=== PATIENT | female | born 2000 | race Caucasian/White ===

== ENCOUNTER 2022-05-14 21:42 | Observation (INO) ==
[2022-05-14] MEDS ORDERED: KETOROLAC TROMETHAMINE 15 MG/ML VIAL IV STA (22:00)
[2022-05-14 22:38] LABS: Basophils # (auto) 0.02 K/uL (0-0.2); Basophils % (auto) 0.2 %; Hematocrit (blood only) 41.8 % (34.1-44.9); Hemoglobin 14.5 g/dl (12.0-16.0); Immature Granulocytes # (auto) 0.03 K/uL (0.00-0.02); Immature Granulocytes % (auto) 0.2 %; Lymphocytes # (auto) 1.48 K/uL (1.2-3.4); Lymphocytes % (auto) 11.8 %; Mean Corpuscular Hemoglobin 31.9 pg (25.0-34.0); Mean Corpuscular Hgb Conc 34.7 g/dL (32.0-36.0); Mean Corpuscular Volume 91.9 fL (80.0-100.0); Mean Platelet Volume 9.2 fL (9.4-12.3); Monocytes # (auto) 1.53 K/uL (0.24-0.82); Monocytes % (auto) 12.2 %; Neutrophils # (auto) 9.49 K/uL (1.4-6.5); Neutrophils % (auto) 75.6 %; Platelet Count 411 K/uL (130-400); RDW Coefficient of Variation 12.3 % (11.5-14.5); RDW Standard Deviation 41.4 fL (36.4-46.3); Red Blood Count 4.55 M/uL (3.93-5.22); White Blood Count 12.55 K/ul (4.8-10.8)
[2022-05-14 22:57] LABS: Monotest Negative (Negative); Pregnancy Test, Serum Negative (Negative)
--- NOTE | 2022-05-14 23:03 | Emergency Department Note ---
History of Present Illness General Chief complaint: Throat Pain Stated complaint: SWOLLEN LYMPH NODE RIGHT SIDE, TROUBLE BREATH Time Seen by Provider: 05/14/22 21:55 History of Present Illness Maximum Pain Intensity: 5 This 21-year-old presents to the ER complaining of throat discomfort and enlarged lymph node for the past few days steadily getting worse who saw urgent care was placed on prednisone and had a negative strep mono COVID and flu test Location: Throat and neck Quality: Discomfort Severity: Moderate Duration: Past few days Timing: Started few days ago Context: Lymph node got larger and patient came in Modifying factors: better with prednisone; worse with swallowing Patient denies chest pain, dyspnea, headache, neck stiffness, high fevers, lethargy. She states she felt like the prednisone was helping but not anymore. No dental pain. Home Medications Medication Instructions Recorded Confirmed Type No Known Home Medications 05/14/22 05/14/22 History Allergies Allergy/AdvReac Type Severity Reaction Status Date / Time CEFZIL AdvReac Unknown Uncoded 10/28/03 01:58 Past Med/Surg History Medical History No acute medical problems Surgical History (Updated 05/14/22 @ 22:59 by Nabila Ling PA-C) No pertinent past surgical history Social History Smoking Status: Never smoker Preferred Language: S[place] Feels Safe at Home: Yes Review of Systems A total of 10 systems reviewed and were otherwise negative Physical Exam Vital Signs Vital Signs - 24 hr 05/14/22 21:48 05/14/22 21:43 05/14/22 22:00 Temperature 36.1 C L 36.8 C Temperature Source Temporal Artery Scan Oral Pulse Rate 78 64 Pulse Rate [Apical] 66 Pulse Rhythm Regular Respiratory Rate 20 19 16 Respiratory Effort / Characteristics Non-Labored Spontaneous Non-Labored Spontaneous Respiratory Depth Normal Normal Blood Pressure 134/84 Blood Pressure [Right Arm] 131/81 Blood Pressure Mean 100 Blood Pressure Mean [Right Arm] 97 Pulse Oximetry 100 99 98 Oxygen Delivery Method Room Air Room Air Room Air Sepsis New/Unexplained Change in Mental Status N/A Sepsis Action Taken by Nursing No Action Required 05/14/22 23:43 05/15/22 01:00 Temperature 36.6 C Temperature Source Oral Pulse Rate Pulse Rate [Apical] 61 66 Pulse Rhythm Respiratory Rate 16 20 Respiratory Effort / Characteristics Non-Labored Spontaneous Non-Labored Spontaneous Respiratory Depth Normal Normal Blood Pressure Blood Pressure [Right Arm] 114/67 128/73 Blood Pressure Mean Blood Pressure Mean [Right Arm] 82 91 Pulse Oximetry 99 98 Oxygen Delivery Method Room Air Room Air Sepsis New/Unexplained Change in Mental Status Sepsis Action Taken by Nursing VITALS: Vitals are noted on the nurse's note and reviewed by myself. Vital signs stable. GENERAL: White female speaking in full sentences, in no acute distress, nondiaphoretic, well-developed well-nourished. SKIN: The skin was without rashes, erythema, edema, or bruising. There is no tenting of the skin. Capillary reflex less than 2 seconds. HEAD: Normocephalic atraumatic. EARS: External auditory canals clear, tympanic membranes pearly dc without erythema or effusion bilaterally. EYES: Pupils equal round and reactive to light and accommodation. Conjunctivae without injection, sclerae without icterus. Extraocular movements intact. NOSE: Patent, turbinates without inflammation or discharge. No sinus tenderness. MOUTH: Mucous membranes moist. Pharynx with erythema without exudate. Right tonsil bigger than the left, uvula midline. Airway patent. Tongue does not deviate. NECK: Supple without nuchal rigidity. Right submandibular lymphadenopathy. No thyromegaly. Cervical spine is nontender. No JVD. No meningeal signs HEART: Regular rate and rhythm without murmurs gallops or rubs. LUNGS: Clear to auscultation bilaterally without wheezes, rales or rhonchi. No retractions or accessory muscle use. ABDOMEN: Positive bowel sounds x 4. Normal tympanic percussion. Soft, nontender, without masses or organomegaly. [place] sign negative. No guarding or rebound tenderness. No CVA tenderness MUSCULOSKELETAL: No muscle atrophy, erythema, or edema noted. NEURO: Patient was alert and oriented to person place and time. Normal sensation to light and sharp touch. No focal neurological deficits. Course Administered Medications Discontinued Medications Ampicillin Sodium/Sulbactam Sodium 3,000 mg/ Sodium Chloride 108 mls @ 200 mls/hr IV NOW STA; Protocol Stop: 05/15/22 01:07 Last Infusion: 05/15/22 01:28 Dose: 0 mls/hr Documented By: Admin: 05/15/22 00:47 Dose: 200 mls/hr Documented By: PHILIP Ioversol (Optiray 350 100ml) 100 ml IV ONCE ONE Stop: 05/14/22 23:45 Last Admin: 05/14/22 23:44 Dose: 88 ml Documented By: RAVINDER Ketorolac Tromethamine (Ketorolac Tromethamine 15 Mg/Ml Vial) 10 mg IV NOW STA Stop: 05/14/22 22:01 Last Admin: 05/14/22 22:25 Dose: 10 mg Documented By: PHILIP Medical Decision Making Medical Records Attestation: I reviewed the patient's medical records. Home Medications Current Medication List: was personally reviewed by me Laboratory Data Attestation: I reviewed the patient's lab results. Result diagrams: 05/14/22 22:22 05/14/22 22:22 Lab Results 05/14/22 05/14/22 05/14/22 Range/Units 22:22 22:22 22:22 WBC 12.55 H (4.8-10.8) K/ul RBC 4.55 (3.93-5.22) M/uL Hgb 14.5 (12.0-16.0) g/dl Hct 41.8 (34.1-44.9) % MCV 91.9 (80.0-100.0) fL MCH 31.9 (25.0-34.0) pg MCHC 34.7 (32.0-36.0) g/dL RDW Std Deviation 41.4 (36.4-46.3) fL RDW Coeff of Duong 12.3 (11.5-14.5) % Plt Count 411 H (130-400) K/uL MPV 9.2 L (9.4-12.3) fL Immature Gran % (Auto) 0.2 % Neut % (Auto) 75.6 % Lymph % (Auto) 11.8 % [place] % (Auto) 12.2 % Eos % (Auto) 0.0 % Baso % (Auto) 0.2 % Neut # (Auto) 9.49 H (1.4-6.5) K/uL Lymph # (Auto) 1.48 (1.2-3.4) K/uL [place] # (Auto) 1.53 H (0.24-0.82) K/uL Eos # (Auto) 0.00 (0-0.50) K/uL Baso # (Auto) 0.02 (0-0.2) K/uL Immature Gran # (Auto) 0.03 H (0.00-0.02) K/uL Sodium 136 (136-145) mmol/L Potassium 3.9 (3.5-5.1) mmol/L Chloride 102 (98-107) mmol/L Carbon Dioxide 25 (21-32) mmol/L Anion Gap 9 (3-11) BUN 16 (6-23) mg/dl Creatinine 0.90 (0.6-1.2) mg/dl Est Cr Clr Drug Dosing 95.4 ml/min Est GFR ( Amer) 105.9 ml/min Est GFR (Non-Af Amer) 91.4 ml/min BUN/Creatinine Ratio 17.8 (10-20) Glucose 88 (70-99(Fasting)) mg/dl Calcium 9.6 (8.5-10.1) mg/dl Total Bilirubin 0.5 (0.2-1.0) mg/dl AST 22 (13-39) U/L ALT 23 (7-52) U/L Alkaline Phosphatase 61 (34-104) U/L Total Protein 8.7 H (6.0-8.3) gm/dl Albumin 4.7 (3.4-5.0) gm/dl Globulin 4.0 (2.5-4.0) gm/dl Albumin/Globulin Ratio 1.2 (0.9-2) HCG, Qual Negative (Negative) Monoscreen Negative (Negative) SARS-CoV-2, RNA, NAAT (NEGATIVE) Group A Strep (PCR) (NotDetected) 05/14/22 05/15/22 Range/Units 22:22 00:56 WBC (4.8-10.8) K/ul RBC (3.93-5.22) M/uL Hgb (12.0-16.0) g/dl Hct (34.1-44.9) % MCV (80.0-100.0) fL MCH (25.0-34.0) pg MCHC (32.0-36.0) g/dL RDW Std Deviation (36.4-46.3) fL RDW Coeff of Duong (11.5-14.5) % Plt Count (130-400) K/uL MPV (9.4-12.3) fL Immature Gran % (Auto) % Neut % (Auto) % Lymph % (Auto) % [place] % (Auto) % Eos % (Auto) % Baso % (Auto) % Neut # (Auto) (1.4-6.5) K/uL Lymph # (Auto) (1.2-3.4) K/uL [place] # (Auto) (0.24-0.82) K/uL Eos # (Auto) (0-0.50) K/uL Baso # (Auto) (0-0.2) K/uL Immature Gran # (Auto) (0.00-0.02) K/uL Sodium (136-145) mmol/L Potassium (3.5-5.1) mmol/L Chloride (98-107) mmol/L Carbon Dioxide (21-32) mmol/L Anion Gap (3-11) BUN (6-23) mg/dl Creatinine (0.6-1.2) mg/dl Est Cr Clr Drug Dosing ml/min Est GFR ( Amer) ml/min Est GFR (Non-Af Amer) ml/min BUN/Creatinine Ratio (10-20) Glucose (70-99(Fasting)) mg/dl Calcium (8.5-10.1) mg/dl Total Bilirubin (0.2-1.0) mg/dl AST (13-39) U/L ALT (7-52) U/L Alkaline Phosphatase (34-104) U/L Total Protein (6.0-8.3) gm/dl Albumin (3.4-5.0) gm/dl Globulin (2.5-4.0) gm/dl Albumin/Globulin Ratio (0.9-2) HCG, Qual (Negative) Monoscreen (Negative) SARS-CoV-2, RNA, NAAT NEGATIVE (NEGATIVE) Group A Strep (PCR) NOT DETECTED (NotDetected) Imaging Data Attestation: I personally reviewed and interpreted this imaging study as follows: MDM Narrative Prior records/ancillary studies reviewed. Triage Nursing notes reviewed. Additional history obtained from friend. The patient's history was concerning for a sore throat. Differential diagnosis: Etiologies such as viral syndrome, tonsillitis, streptococcal pharyngitis, mononucleosis, peritonsillar abscess, retropharyngeal abscess, otitis, pneumonia, influenza, as well as others were entertained. ER treatment provided: IV fluids Toradol, Unasyn On reassessment the patient felt better. Diagnostics interpreted by me: The labs revealed mild leukocytosis, negative strep test negative mono Imaging studies: CT NECK: 12 x 8.4 x 15 mm hypodense fluid collection at the lateral aspect of the right palatine tonsils (axial series 2 image 48) consistent with a peritonsillar abscess with minimal mass-effect. Overall enlargement of the palatine tonsils bilaterally. No significant lymphadenopathy. Nasal and oropharynx otherwise unremarkable. Radiologist: Ad Montgomery M.D. Consultation: A consultation was placed with hospitalist. They will evaluate for possible admission. Patient no signs of airway compromise This appears to be consistent with peritonsillar abscess. Patient was started on antibiotics. Medicine was consulted. They will evaluate for possible admission. There is no ENT coverage tonight. No airway compromise. Patient is speaking full sentences. She was not drooling. No hot potato voice. By the evaluation outlined above emergent etiologies such as otitis, pneumonia, meningitis, urinary tract infection, sepsis, bacteremia, as well as others were deemed relatively unlikely. The pt informed about the findings as listed above. All questions were answered and pleased with the treatment. The chart was completed utilizing [employer] Speech voice recognition software. Grammatical errors, random word insertions, pronoun errors, and incomplete sentences are an occassional consequence of this system due to software limitations, ambient noise, and hardware issues. Any formal questions or concerns about the content, text, or information contained within the body of this dictation should be directly addressed to the physician environmental emergencies assistant for clarification. Impression & Plan Peritonsillar abscess Discharge Plan Visit Data Chief Complaint: Throat Pain Stated Complaint: SWOLLEN LYMPH NODE RIGHT SIDE, TROUBLE BREATH ED Provider: [facility] ED Midlevel Provider: Nabila Ling Discharge Problem: Peritonsillar abscess Patient Disposition: Being Evaluated by Hospitalist Condition: Good Forms Stand Alone Forms: [employer] Prescriptions Prescriptions: No Action No Known Home Medications Referrals Referrals: PCP,NO [Primary Care Provider] -
[2022-05-14 23:05] LABS: Albumin Globulin Ratio 1.2 (0.9-2); Albumin Level 4.7 gm/dl (3.4-5.0); BUN Creatinine Ratio 17.8 (10-20); Bilirubin,Total 0.5 mg/dl (0.2-1.0); Calcium 9.6 mg/dl (8.5-10.1); Creatinine Clr Calc Pharmacy 95.4 ml/min; Est GFR (African American) 105.9 ml/min; Est GFR (Non-African American) 91.4 ml/min; Potassium 3.9 mmol/L (3.5-5.1); Total Protein 8.7 gm/dl (6.0-8.3)
[2022-05-14] MEDS ORDERED: OPTIRAY 350 100ml IV ONE (23:44)
[2022-05-15] MEDS ORDERED: AMPICILLIN/SULBACTAM SOD 3,000 MG in 0.9 % SODIUM CHLORIDE 100 ML IV STA (00:35)
--- NOTE | 2022-05-15 01:23 | History & Physical Report ---
Date of Service May 15, 2022 Assessment & Plan (1) Peritonsillar abscess: Plan: Peritonsillar abscess- 12 x 8.4 x 15 mm peritonsillar abscess at the lateral aspect of the right palatine tonsil with minimal mass-effect. Overall enlargement of the palatine tonsils bilaterally. Continue Unasyn 3 g IV begun in ED every 6 hours Acetaminophen 650 mg p.o. every 6 hours as needed mild pain or fever Toradol 15 mg IV every 6 hours as needed moderate pain NSS + KCl 20 mEq at 100 mils per hour x1 L Zofran 4 mg IV every 6 hours as needed History of Present Illness Chief Complaint: The patient presents to the emergency department complaining of a worsening sore throat and enlarging lymph node over the past few days, despite being placed on prednisone by urgent care after having had a negative strep/mono/COVID/flu test a few days ago Primary Care Provider: NO PCP The patient is a 21-year-old female with no significant past medical history, who presents with symptoms as noted above. She denies any associated shortness of breath, chest pain, fevers or chills. She denies any sick exposures or recent travels. She has been taking prednisone for the past few days, and notes that when she stopped the prednisone 2 days ago, the swelling worsened, and had decreased somewhat when she restarted the prednisone yesterday. Allergies Allergy/AdvReac Type Severity Reaction Status Date / Time cefprozil [From Cefzil] AdvReac Unknown Unknown Verified 05/15/22 02:20 Home Medications Medication Instructions Recorded Confirmed Type No Known Home Medications 05/14/22 05/14/22 History Past Med/Surg History Medical History No acute medical problems Surgical History (Updated 05/14/22 @ 22:59 by Nabila Ling PA-C) No pertinent past surgical history Social History Smoking Status: Never smoker Preferred Language: Moldovan Feels Safe at Home: Yes Review of Systems Review of Systems: The patient denies chest pain, palpitations, shortness of breath, dyspnea on exertion, cough, lower extremity swelling, fevers, chills, sweats, weight change, fatigue, nausea, vomiting, diarrhea , constipation, abdominal pain, pelvic pain, blood in urine or stool, dysuria, urinary frequency or urgency, lightheadedness, dizziness, headache, memory loss, loss of consciousness, rash, abnormal bruising or bleeding, imbalance, focal or generalized weakness, numbness or tingling in arms or legs, generalized arthralgias or myalgias, back or neck pain, or night sweats. The review of systems is otherwise negative other than for that already noted above, and at least 10 systems have been reviewed. Physical Exam Physical Exam: The patient is awake, alert and oriented 3, well developed and well nourished, normocephalic and atraumatic, lying in bed and in no acute distress. HEENT--PERRL, EOMI, mucous membranes and oropharynx mildly dry. Peritonsillar enlargement, right greater than left Neck--supple. No JVD. No bruits. Thyroid normal, trachea midline, no adenopathy. Heart--normal S1 and S2. No murmurs, rubs or gallops. Lungs--clear bilaterally, no respiratory distress, no accessory muscle use. Abdomen--normal bowel sounds and soft. Nontender. Nondistended, no hernias or masses, no organomegaly. Extremities--no cyanosis or clubbing. No edema. Dermatologic--normal skin turgor, normal color, no abnormal lymph nodes, no rash. Neurologic--cranial nerves II through XII grossly intact. Rheumatologic--normal range of motion. Psychiatric--normal affect. Results & Data Results & Data ([facility]) Vital Signs (Past 12 Hours) Vital Signs Temp Pulse Pulse Resp BP BP Pulse Ox 05/14/22 23:43 61 16 114/67 99 05/14/22 22:00 64 16 98 05/14/22 21:43 36.8 C 66 19 131/81 99 05/14/22 21:48 36.1 C L 78 20 134/84 100 O2 Del Method 05/14/22 23:43 Room Air 05/14/22 22:00 Room Air 05/14/22 21:43 Room Air 05/14/22 21:48 Room Air Laboratory Results Laboratory Results WBC 12.55 K/ul (4.8-10.8) H 05/14/22 22:22 RBC 4.55 M/uL (3.93-5.22) 05/14/22 22: Hgb 14.5 g/dl (12.0-16.0) 05/14/22: Hct 41.8 % (34.1-44.9) 05/14/22 22: MCV 91.9 fL (80.0-100.0) 05/14/22: MCH 31.9 pg (25.0-34.0) 05/14/22: MCHC 34.7 g/dL (32.0-36.0) 05/14/22: RDW Std Deviation 41.4 fL (36.4-46.3) 05/14/22: RDW Coeff of Duong 12.3 % (11.5-14.5) 05/14/22: Plt Count 411 K/uL (130-400) H 05/14/22: MPV 9.2 fL (9.4-12.3) L 05/14/22: Immature Gran % (Auto) 0.2 % 05/14/22: Neut % (Auto) 75.6 % 05/14/22: Lymph % (Auto) 11.8 % 05/14/22: [place] % (Auto) 12.2 % 05/14/22: Eos % (Auto) 0.0 % 05/14/22: Baso % (Auto) 0.2 % 05/14/22: Neut # (Auto) 9.49 K/uL (1.4-6.5) H 05/14/22: Lymph # (Auto) 1.48 K/uL (1.2-3.4) 05/14/22: [place] # (Auto) 1.53 K/uL (0.24-0.82) H 05/14/22: Eos # (Auto) 0.00 K/uL (0-0.50) 05/14/22 22: Baso # (Auto) 0.02 K/uL (0-0.2) 05/14/22: Immature Gran # (Auto) 0.03 K/uL (0.00-0.02) H 11/09/22 22:22 Sodium 136 mmol/L (136-145) 05/14/22 22:22 Potassium 3.9 mmol/L (3.5-5.1) 05/14/22 22:22 Chloride 102 mmol/L (98-107) 05/14/22 22:22 Carbon Dioxide 25 mmol/L (21-32) 05/14/22 22:22 Anion Gap 9 (3-11) 05/14/22 22:22 BUN 16 mg/dl (6-23) 05/14/22 22:22 Creatinine 0.90 mg/dl (0.6-1.2) 05/14/22 22:22 Est Cr Clr Drug Dosing 95.4 ml/min 05/14/22 22:22 Est GFR ( Amer) 105.9 ml/min 05/14/22 22: Est GFR (Non-Af Amer) 91.4 ml/min 05/14/22 22:22 BUN/Creatinine Ratio 17.8 (10-20) 05/14/22 22:22 Glucose 88 mg/dl (70-99(Fasting)) 05/14/22 22: Calcium 9.6 mg/dl (8.5-10.1) 05/14/22 22:22 Total Bilirubin 0.5 mg/dl (0.2-1.0) 05/14/22 22:22 AST 22 U/L (13-39) 05/14/22 22: ALT 23 U/L (7-52) 05/14/22 22:22 Alkaline Phosphatase 61 U/L (34-104) 05/14/22 22:22 Total Protein 8.7 gm/dl (6.0-8.3) H 05/14/22 22:22 Albumin 4.7 gm/dl (3.4-5.0) 05/14/22 22:22 Globulin 4.0 gm/dl (2.5-4.0) 05/14/22 22:22 Albumin/Globulin Ratio 1.2 (0.9-2) 05/14/22 22:22 HCG, Qual Negative (Negative) 05/14/22 22:22 Monoscreen Negative (Negative) 05/14/22 22:22 SARS-CoV-2, RNA, NAAT NEGATIVE (NEGATIVE) 05/15/22 00:56 Group A Strep (PCR) NOT DETECTED (NotDetected) 05/14/22 22:22 Code Status & VTE Plan Code Status Full code VTE Prophylaxis Plan VTE Prophylaxis will be ordered: Yes
[2022-05-15] MEDS ORDERED: ACETAMINOPHEN 325 MG TAB PO STA (02:10)
[2022-05-15] MEDS ORDERED: ACETAMINOPHEN 325 MG TAB ONE (02:18)
--- NOTE | 2022-05-15 02:29 | Billing Data ---
Date of Service May 15, 2022 Coding Level of Care Code INT OBSERVATION CARE 70M LVL 3
[2022-05-15] MEDS ORDERED: ONDANSETRON INJ 2 MG/ML 2 ML VIAL IV PRN (02:40)
[2022-05-15] MEDS ORDERED: ACETAMINOPHEN 325 MG TAB PO PRN (02:40)
[2022-05-15] MEDS ORDERED: NSS + 20MEQ KCL 20 MEQ/1,000 ML BAG IV SCH (02:40)
[2022-05-15] MEDS ORDERED: KETOROLAC TROMETHAMINE 15 MG/ML VIAL IV PRN (02:40)
[2022-05-15] MEDS: AMPICILLIN/SULBACTAM SOD 3,000 MG in 0.9 % SODIUM CHLORIDE 100 ML IV SCH ×2 (05:48→11:45)
--- NOTE | 2022-05-15 08:22 | CT Scan Report ---
CT SCAN OF THE NECK WITH IV CONTRAST CLINICAL HISTORY: Dysphagia COMPARISON STUDY: No priors. TECHNIQUE: Following the IV administration of 88 cc of Optiray 350, CT scan of the soft tissues of th e neck was performed from the skull base to the upper chest. Images are reviewed in the axial, sagitt al, and coronal planes. IV contrast was administered without complication. A dose lowering techniqu e was utilized adhering to the principles of ALARA. CT DOSE: 521.86 mGy.cm FINDINGS: Pharynx: The tonsils appear mildly enlarged and edematous with associated mucosal hyperemia. There is a 1.6 x 1.7 x 0.9 cm peritonsillar abscess on the right seen on axial image #189. There is a mild na rrowing of the adjacent airway. There is no evidence of mass lesion. The vocal cords are symmetric. T he parapharyngeal fat is well maintained. The prevertebral/retropharyngeal soft tissues are within no rmal limits. The epiglottis is normal. Lymphadenopathy: There are mildly enlarged right cervical chain lymph nodes. The largest measures 2.0 x 1.9 cm seen on image #221. Thyroid: Normal in size and attenuation. Salivary glands: The parotid and submandibular glands are within normal limits. Brain parenchyma: The visualized brain parenchyma at the skull base is normal in appearance. Vascular structures: The carotid arteries and jugular veins are patent. Skeletal structures: Imaged portions of the calvarium at the skull base are within normal limits. The cervical spine appears intact. Sinuses and mastoids: There is mild mucosal thickening in the ethmoid sinuses. The remaining paranasa l sinuses are clear. The mastoid air cells are well pneumatized. Orbits: The bony orbits are intact. Orbital contents are normal as visualized. Lung apices: Visualized apical lung parenchyma is clear. IMPRESSION: 1. There is evidence of tonsillitis with a 1.7 cm right peritonsillar abscess. 2. This only mildly narrows the adjacent airway. 3. Mildly enlarged cervical lymph nodes are likely reactive. ACT 112: Negative or not required by law. Electronically signed by: Kasi Chaudhry M.D. 05/15/2022 8:20 AM
--- NOTE | 2022-05-15 12:01 | Discharge Summary ---
Date of Service May 15, 2022 Admission HPI Per Admitting Provider The patient is a 21-year-old female with no significant past medical history, who presents with symptoms as noted above. She denies any associated shortness of breath, chest pain, fevers or chills. She denies any sick exposures or recent travels. She has been taking prednisone for the past few days, and notes that when she stopped the prednisone 2 days ago, the swelling worsened, and had decreased somewhat when she restarted the prednisone yesterday. Principal Diagnosis Tonsillitis with small R peritonsillar abscess Discharge Exam GENERAL: 21 yo Well-developed, well-nourished WF. NAD. HENT: Moist mucous membranes. No scleral icterus. B/l tonsillar enlargement R>L with tonsillar adenopathy LUNGS: Clear to auscultation bilaterally. No accessory muscle use. No W/R/R. CARDIOVASCULAR: Regular rate and rhythm. No M/G/R. No JVD. ABDOMEN: Soft, non-tender and non-distended. BS normoactive x 4 quad. SKIN: Warm, dry, intact. No rashes or lesions. Discharge Data Allergies Allergy/AdvReac Type Severity Reaction Status Date / Time cefprozil [From Cefzil] AdvReac Unknown Unknown Verified 05/15/22 02:20 Consultations 05/15/22 00:55 ED Decision to Admit Stat 05/15/22 01:12 ED Decision to Admit Stat Ordered Studies 05/14/22 22:00 CT soft tissue neck w con Stat Hospital Course (1) Peritonsillar abscess: Peritonsillar abscess- 1.7 cm peritonsillar abscess at the lateral aspect of the right palatine tonsil with minimal mass-effect. Overall enlargement of the palatine tonsils bilaterally. Continue Unasyn 3 g IV q6h Acetaminophen 650 mg p.o. every 6 hours as needed mild pain or fever Toradol 15 mg IV every 6 hours as needed moderate pain NSS + KCl 20 mEq at 100 ml per hour x1 L Zofran 4 mg IV every 6 hours as needed Appt made with ENT, she will see tomorrow 05/16 @ 10am Plan to convert Unasyn to Augmentin 875-125mg BID x 10 days Pt medically stable for dc home today with ENT follow up. APAP/Ibuprofen can be utilized as needed for pain/fever. Plan Plan d/w Dr. Ma who is in agreement. Total Time Total Time Spent Total Time Spent (In Minutes): <30 minutes Discharge Plan Discharge Items Patient Disposition: Home - Self-Care Reason For Visit: TONSILLITIS Discharge Diagnosis: tonsillitis with small abscess on right Condition on Discharge: Good Activity: Resume your previous activity Non-emergency contact: Primary Care Provider Call non-emergency contact if: you have any medication questions Follow-up/Referrals: [facility] [Non-Staff] - (FOLLOW UP WITH [facility] 7-10 BUSINESS DAYS FOR A HOSPITAL FOLLOW UP) Keiko San MD [Surgeon] - 05/16/22 10:00 am (Please arrive 15 minutes prior to appointment time. ) PCP,NO [Primary Care Provider] - Diet: Regular Addtl Attending Provider Instructions: You were hospitalized with a inflammation of your tonsils with findings of a small peritonsillar abscess on the right. This has been managed by starting you on IV antibiotics which will be transitioned to oral antibiotics and you will be scheduled to follow up with an Ears, nose, and throat specialist. An appointment has been made on your behalf with Dr. San for 05/16 at 10am. In the meantime, you will be started on an oral antibiotic called Augmentin. Your next dose will be due this evening. Please take it with food or milk. Nausea and diarrhea are the most common side effects. Continue to push fluids to maintain hydration and you can take over the counter Tylenol and/or Ibuprofen as needed for pain or fever. Pending Studies at Discharge: No Stand-Alone Forms: [facility], Smoking Cessation Medications and DC Order Prescriptions: New amoxicillin-pot clavulanate 875-125 mg tablet 1 tab PO BID Qty: 20 0RF Discharge Orders: Discharge Order (Routine); Ordered 05/15/22 Ordered By: Rozina Ackerman Admission Data Admit Date/Time: 05/15/22 01:23 Attending Provider: Geremias Ma Admit Provider: Yonis Deleon Primary Care Provider: PCP,NO Other Providers: Yonis Deleon Other Interventions: Discharge Summary Assessment (RN) Last Done: 05/15/22 12:15 Supervising Physician Co-Signing Physician Notes I supervised Rozina Ackerman PA-C on the care of this patient. Patient was admitted <24 hours prior to discharge. The plan is as written in her note except for any following changes/exceptions: None 18yo w/ peritonsillar abscess. Improving on abx. Will see ENT tomorrow. Stressed importance of close f/u. Coding Level of Care Code None Diagnoses Peritonsillar abscess J36
== END 2022-05-15 12:40 | disposition home or self-care (01) ==
LOC: 3E 21:42 → ED 21:42 → SUATTDRO 05-15 01:23 → 3E 05-15 02:30